=== PATIENT | female | born 1960 | race Asian ===

== ENCOUNTER → 2018-09-16 | Outpatient (CLI) | payer OTHER | END | disposition home or self-care (01) | LOC: CFH 12:38 | PROVIDERS: ATTEND Family Medicine | DX: S43.402A Unspecified sprain of left shoulder joint, initial encounter (principal); M75.52 Bursitis of left shoulder; X58.XXXA Exposure to other specified factors, initial encounter; Y93.89 Activity, other specified; Y92.89 Other specified places as the place of occurrence of the external cause; Y99.8 Other external cause status ==

== ENCOUNTER 2021-06-19 09:51 | Outpatient (CLI) | payer OTHER ==
[2021-06-19 10:24] LABS: ALANINE AMINOTRANSFERASE 30 U/L (12-78); ALBUMIN 3.9 g/dL (3.4-5.0); ANION GAP 6 mmol/L (5-15); CALCIUM 8.5 mg/dL (8.5-10.1); CHLORIDE 109 mmol/L (98-107); CHOLESTEROL, TOTAL 181 mg/dL (140-239)
[2021-06-19 10:35] LABS: % IRON SATURATION 33 % (20-55); ALKALINE PHOSPHATASE 68 U/L (45-117); BILIRUBIN,TOTAL 0.5 mg/dL (0.2-1.0); CHOL/HDL RATIO 1.7; CREATININE 0.56 mg/dL (0.55-1.02); FREE T4 (FREE THYROXINE) 1.15 ng/dL (0.76-1.46); HDL CHOL % 57 % (28-40); HDL CHOLESTEROL (DIRECT) 104 mg/dL (40-60); IRON LEVEL 115 mcg/dL (50-170); LDL CHOLESTEROL,CALCULATED 69 mg/dL (54-169); LDL/HDL RATIO 0.7 (0.5-3.0); TOTAL IRON BINDING CAPACITY 345 mcg/dL (250-450); TOTAL PROTEIN 7.6 g/dL (6.4-8.2); TRIGLYCERIDES 38 mg/dL (50-200); VLDL CHOLESTEROL 8 mg/dL (0-25)
[2021-06-19 11:09] LABS: BASOPHILS % (AUTO) 0 % (0-1); EOSINOPHILS % (AUTO) 1 % (1-7); LYMPHOCYTES % (AUTO) 35 % (22-44); MEAN CORPUSCULAR HEMOGLOBIN 29.9 pg (27.0-34.8); MEAN CORPUSCULAR HGB CONC 33.2 g/dL (32.4-35.8); MEAN PLATELET VOLUME 7.3 fL (7.4-10.4); MONOCYTES % (AUTO) 6 % (2-9); NEUTROPHILS % (AUTO) 59 % (42-75); PLATELET COUNT 214 x10^3/uL (130-400); RED BLOOD COUNT 4.81 x10^6/uL (3.82-5.3); RED CELL DISTRIBUTION WIDTH 13.7 % (9.6-15.2)
== END 2021-06-19 23:59 | disposition home or self-care (01) ==
LOC: LAB 09:51
PROVIDERS: ATTEND Family Medicine
DX: Z13.220 Encounter for screening for lipoid disorders (principal); Z13.1 Encounter for screening for diabetes mellitus; L65.9 Nonscarring hair loss, unspecified
CPT/HCPCS: 36415; 80053; 80061; 82728; 83036; 83540; 83550; 84402; 84403; 84439; 84443; 84481; 85025; 86038; 86225; 86235; 86376; 86800